=== PATIENT | female | born 1995 | race Caucasian/White ===

== ENCOUNTER → 2016-09-11 | Outpatient (CLI) | payer OTHER | LOC: FIMAGING 07:22 | PROVIDERS: ATTEND Orthopaedic Surgery Foot and Ankle Surgery | DX: M25.571 Pain in right ankle and joints of right foot (principal); S93.431S Sprain of tibiofibular ligament of right ankle, sequela; M25.371 Other instability, right ankle ==

== ENCOUNTER 2017-11-28 | Emergency (ER) | payer OTHER | END 2017-11-28 14:06 | disposition home or self-care (01) | DX: R51 Headache (principal) ==

== ENCOUNTER 2018-08-22 17:30 | Emergency (ER) | payer OTHER ==
[2018-08-22 19:21] LABS: PLATELET COUNT 337 10^3/uL (150-400)
--- NOTE | 2018-08-22 20:40 | EDPHY ---
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 Patient reports she developed right leg pain approximately 5 days ago while in [facility]. She then traveling in a plane back to the [facility]. While traveling the right leg pain worsened. She has subsequently developed what she describes as a deep sharpness in the right aspect of her chest. Symptoms have been persistent. She states pain is somewhat worsened with deep breathing. She has no cough for trouble breathing. No fever cold- like symptoms. No trauma. Her father has a history of pulmonary embolisms, he is currently undergoing hypercoagulable workup at this time, no known family history otherwise. Review of systems: A 10 point review of systems was obtained and other than described above was negative - Personal History Current Tetanus/Diphtheria Vaccine: Yes - Medical/Surgical History Hx Asthma: Yes Hx Chronic Respiratory Disease: No Hx Diabetes: No Hx Cardiac Disease: No Hx Renal Disease: No Hx Cirrhosis: No Hx Alcoholism: No Hx HIV/AIDS: No Hx Splenectomy or Spleen Trauma: No Other PMH: asthma. celiac disease, Lyme disease, Hypothyroidism - Social History Smoking Status: Never smoked - Physical Exam Exam: General Appearance: Alert, no distress. Eyes: Pupils equal and round no pallor or injection. ENT, Mouth: Mucous membranes moist. Respiratory: There are no retractions, lungs are clear to auscultation. Cardiovascular: Regular rate and rhythm. Gastrointestinal: Abdomen is soft and non tender, no masses, bowel sounds normal. Neurological: Alert and oriented x4. Strength and sensation intact and symmetrical. Skin: Warm and dry, no rashes. Musculoskeletal: Neck is supple non tender. Tenderness to the right calf. However no erythema, edema or asymmetry is compared to the left. Psychiatric: Patient is oriented X 3, there is no agitation. Constitutional: Initial Vital Signs Temperature (C) 37.0 C 08/22/18 17:42 Heart Rate 82 08/22/18 17:42 Respiratory Rate 18 08/22/18 17:42 Blood Pressure 125/76 H 08/22/18 17:42 O2 Sat (%) 98 08/22/18 17:42 O2 Delivery Mode Room Air Allergies/Adverse Reactions: gluten Allergy (Verified 08/22/18 17:42) Home Medications: Medication Instructions Recorded Aspirin 11/28/17 Medical Decision Making - Diagnostics Imaging Results: Imaging Impressions Extremity Venous Study 08/22/18 19:49 Impression: No deep venous thrombosis right leg. Results called to Raymond Martin PA-C, at 8:30 PM. Chest X-Ray 08/22/18 19:50 Impression: Normal chest. Imaging: Discussed imaging studies w/ ticket clerk Radiologist, I viewed and interpreted images myself ED Course/Re-evaluation: Patient seen under the supervision of my secondary supervising physician Dr. Adilene Esquivel. Patient presents to the emergency department with right calf pain followed by chest discomfort. She does have risk factors for thromboembolic disease including long travel and the use of control. However her vital signs are stable. Blood studies are unremarkable including a negative D-dimer. EKG and chest x-ray unremarkable. Addition of ultrasound of the right leg is obtained and negative. I do not believe CTA is warranted at this time. I believe patient is safe for discharge home. Home care is discussed. She is to follow up with a primary care doctor this week for recheck. Strict return precautions are given. The patient voiced understanding and agreement with plan. Differential Diagnosis: She included but not limited to pulmonary embolism, DVT, cardiac dysrhythmia, pneumothorax, pulmonary infections, musculoskeletal pain - Data Points Laboratory Results: Laboratory Results 08/22/18 19:12 08/22/18 19:12 08/22/18 08/22/18 08/22/18 19:13 19:12 19:12 WBC RBC Hgb Hct MCV MCH MCHC RDW Plt Count MPV Neut % (Auto) Lymph % (Auto) [place] % (Auto) Eos % (Auto) Baso % (Auto) Nucleat RBC Rel Count Absolute Neuts (auto) Absolute Lymphs (auto) Absolute Monos (auto) Absolute Eos (auto) Absolute Basos (auto) Absolute Nucleated RBC Immature Gran % Immature Gran # D-Dimer Sodium 137 mEq/L mEq/L (135-145) Potassium 4.0 mEq/L mEq/L (3.5-5.2) Chloride 103 mEq/L mEq/L (97-110) Carbon Dioxide 24 mEq/l mEq/l (22-31) Anion Gap 10 mEq/L mEq/L (6-14) BUN 16 mg/dL mg/dL (7-23) Creatinine 0.8 mg/dL mg/dL (0.6-1.0) Estimated GFR > 60 Glucose 94 mg/dL mg/dL (70-100) Calcium 9.7 mg/dL mg/dL (8.5-10.4) POC Troponin I 0.00 ng/mL ng/mL (0.00-0.08) Beta HCG, Qual NEGATIVE 08/22/18 08/22/18 19:12 19:12 WBC 6.82 10^3/uL 10^3/uL (3.80-9.50) RBC 4.58 10^6/uL 10^6/uL (4.18-5.33) Hgb 14.0 g/dL g/dL (12.6-16.3) Hct 40.3 % % (38.0-47.0) MCV 88.0 fL fL (81.5-99.8) MCH 30.6 pg pg (27.9-34.1) MCHC 34.7 g/dL g/dL (32.4-36.7) RDW 12.4 % % (11.5-15.2) Plt Count 337 10^3/uL 10^3/uL (150-400) MPV 9.5 fL fL (8.7-11.7) Neut % (Auto) 50.9 % % (39.3-74.2) Lymph % (Auto) 38.1 % % (15.0-45.0) [place] % (Auto) 7.3 % % (4.5-13.0) Eos % (Auto) 2.6 % % (0.6-7.6) Baso % (Auto) 1.0 % % (0.3-1.7) Nucleat RBC Rel Count 0.0 % % (0.0-0.2) Absolute Neuts (auto) 3.46 10^3/uL 10^3/uL (1.70-6.50) Absolute Lymphs (auto) 2.60 10^3/uL 10^3/uL (1.00-3.00) Absolute Monos (auto) 0.50 10^3/uL 10^3/uL (0.30-0.80) Absolute Eos (auto) 0.18 10^3/uL 10^3/uL (0.03-0.40) Absolute Basos (auto) 0.07 10^3/uL 10^3/uL (0.02-0.10) Absolute Nucleated RBC 0.00 10^3/uL 10^3/uL (0-0.01) Immature Gran % 0.1 % % (0.0-1.1) Immature Gran # 0.01 10^3/uL 10^3/uL (0.00-0.10) D-Dimer < 0.27 ug/mLFEU ug/mLFEU (0.00-0.50) Sodium Potassium Chloride Carbon Dioxide Anion Gap BUN Creatinine Estimated GFR Glucose Calcium POC Troponin I Beta HCG, Qual Point of Care Test Results: Chemistry 08/22/18 19:13 POC Troponin I 0.00 ng/mL ng/mL (0.00-0.08) Departure - Departure Disposition: Home, Routine, Self-Care Clinical Impression: Chest pain Qualifiers: Chest pain type: unspecified Qualified Code(s): R07.9 - Chest pain, unspecified Leg pain Qualifiers: Laterality: right Qualified Code(s): M79.604 - Pain in right leg Condition: Good Instructions: Chest Pain (ED), Leg Pain (ED) Additional Instructions: Follow-up with your primary care doctor in the next 1-2 days for recheck You can use ibuprofen 600 mg 3 times a day for the next 2-3 days for discomfort If symptoms worsen or any new symptoms develop please return immediately to the emergency room. Referrals: Delmy Muñiz MD [Primary Care Provider] - As per Instructions
--- NOTE | 2018-08-22 21:13 | CPEKG ---
Test Reason : OPEN Blood Pressure : / mmHG Vent. Rate : 069 BPM Atrial Rate : 069 BPM P-R Int : 150 ms QRS Dur : 083 ms QT Int : 382 ms P-R-T Axes : 061 068 040 degrees QTc Int : 410 ms Sinus rhythm Probable left atrial enlargement Confirmed by Adilene Esquivel ([id number]) on 08/22/2018 9:11:06 PM Referred By: Adilene Esquivel Confirmed By:Adilene Esquivel
[2018-08-22 21:37] VITALS: BP 116/69
== END 2018-08-22 21:38 | disposition home or self-care (01) ==
DX: R07.9 Chest pain, unspecified (principal); M79.604 Pain in right leg; J45.909 Unspecified asthma, uncomplicated; E03.9 Hypothyroidism, unspecified
CPT/HCPCS: 84484-ER